=== PATIENT | male | born 1995 | race Hispanic/Latino ===

== ENCOUNTER 2023-12-27 19:12 | Emergency (ER) | payer OTHER ==
[~2023-12-27] VITALS: Ht 170.2 cm; Wt 108.0 kg
[2023-12-27 20:17] LABS: BASOPHILS # (AUTO) 0.07 K/uL (0.00-0.20); BASOPHILS % (AUTO) 0.5 % (0.0-5.0); EOSINOPHILS # (AUTO) 0.61 K/uL (0.00-0.70); EOSINOPHILS % (AUTO) 4.2 % (0.0-8.0); HEMATOCRIT 48.2 % (42-54); IMMATURE GRANULOCYTE ABSOLUTE 0.06 K/uL (0-1); LYMPHOCYTES # (AUTO) 4.5 K/uL (1.0-4.8); LYMPHOCYTES % (AUTO) 31.4 % (21.0-51.0); MEAN CORPUSCULAR HEMOGLOBIN 29.6 pg (27.0-33.0); MEAN CORPUSCULAR HGB CONC 33.8 g/dL (32.0-36.0); MEAN CORPUSCULAR VOLUME 87.6 fL (79-99); MONOCYTES # (AUTO) 1.3 K/uL (0.1-1.0); NEUTROPHILS # (AUTO) 7.9 K/uL (1.8-7.7); NEUTROPHILS % (AUTO) 54.5 % (40.0-77.0); PLATELET COUNT (AUTO) 313 K/uL (130-400); RED CELL DISTRIBUTION WIDTH 12.9 % (11.0-15.5); WHITE BLOOD COUNT (AUTO) 14.4 K/uL (4.8-10.8)
[2023-12-27 20:26] LABS: CREATININE 0.9 mg/dL (0.5-1.3); POTASSIUM 3.5 mmol/L (3.5-5.1)
[2023-12-27 20:27] LABS: INR <= 0.93 (0.85-1.15); PROTHROMBIN TIME 10.5 SEC (9.6-11.6)
[2023-12-27 20:29] LABS: PARTIAL THROMBOPLASTIN TIME 27.7 SEC (26.3-35.5)
[2023-12-27 20:30] LABS: ALBUMIN 3.6 g/dL (3.5-5.0); BILIRUBIN,TOTAL 0.5 mg/dL (0.2-1.0); TOTAL PROTEIN, SERUM 7.9 g/dL (6.0-8.3)
[2023-12-27] MEDS ORDERED: TOBRDOS OU (21:06)
[2023-12-27] MEDS: TOBRAMYCIN/DEXAMETHASONE OPTH SUSP 2.5 ML BOT OU SCH (21:25)
[2023-12-27] MEDS: CEFTRIAXONE 1G VIAL IM ONE (21:25)
[2023-12-27 21:31] VITALS: BP 131/52; PULSE 74; RESP 18; O2SAT 98
== END 2023-12-27 21:44 | disposition home or self-care (01) ==
LOC: EDH 19:12
DX: R22.0 Localized swelling, mass and lump, head (principal); H57.13 Ocular pain, bilateral; D69.6 Thrombocytopenia, unspecified; Z79.899 Other long term (current) drug therapy
CPT/HCPCS: 99283; 80053; 85025; 85610; 85730; 36415; J0696

== ENCOUNTER 2024-05-04 13:40 | Emergency (ER) | payer SELFPAY ==
[~2024-05-04] VITALS: Ht 170.2 cm; Wt 108.9 kg
[~2024-05-04 13:40] MED LIST: TOBRDOS OU
[2024-05-04] MEDS: ketOROlac 10 MG TABLET PO ONE (14:30)
[2024-05-04] MEDS: NEOMY SULF/BACITRA/POLYMYXIN B 1 EACH PACKET TP ONE (15:56)
[2024-05-04] MEDS: LIDOCAINE HCL 1% 20 ML VIAL INJ SCH (16:06)
[2024-05-04] MEDS: teTANUS/diphthERIA TOXOID [ADULT] 0.5 ML VIAL IM ONE (16:06)
[2024-05-04] MEDS ORDERED: IBUP-2070 PO (16:15)
[2024-05-04] MEDS ORDERED: CEFI400C4 PO (16:15)
[2024-05-04 18:27] VITALS: BP 128/70; PULSE 80; RESP 16; TEMP 98; O2SAT 99
== END 2024-05-04 18:26 | disposition home or self-care (01) ==
LOC: EDH 13:40
DX: S61.213A Laceration without foreign body of left middle finger without damage to nail, initial encounter (principal); Z88.0 Allergy status to penicillin; Z79.899 Other long term (current) drug therapy; Z98.890 Other specified postprocedural states; W28.XXXA Contact with powered lawn mower, initial encounter; Y93.89 Activity, other specified; Y92.89 Other specified places as the place of occurrence of the external cause; Y99.8 Other external cause status
CPT/HCPCS: 12001; 73130; 90471; 90714